=== PATIENT | male | born 1960 | race Two or more races ===

== ENCOUNTER 2019-01-31 20:42 | Inpatient (IN) | payer MEDICARE ==
[~2019-01-31] VITALS: Ht 175.3 cm; Wt 109.5 kg
[2019-01-31] MEDS ORDERED: MORPHINE SULFATE 4 MG/ML VIAL. ONE (20:54)
[2019-01-31] MEDS ORDERED: ONDANSETRON PF 4 MG/2 ML VIAL. ONE (20:54)
[2019-01-31] MEDS ORDERED: ONDANSETRON PF 4 MG/2 ML VIAL. IM ONE ×2 (21:00→22:45)
[2019-01-31] MEDS ORDERED: MORPHINE SULFATE 4 MG/ML VIAL. IV ONE ×2 (21:00→22:45)
[2019-01-31] MEDS ORDERED: ONDANSETRON PF 4 MG/2 ML VIAL. IV ONE ×2 (21:15→22:45)
--- NOTE | 2019-01-31 21:53 | PHYS DOC ---
Past Medical History Past Medical History: Diabetes-Type II (CHARITO HICKS APRN) Additional Past Surgical Histo: RIGHT KNEE SURGERY (CHARITO HICKS APRN) Alcohol Use: Occasionally Drug Use: None (CHARITO HICKS APRN) Attending Signature I have participated in the care of this patient and I have reviewed and agree with all pertinent clinical information above including history, exam, and recommendations. (KAMALA LI MD) Adult General Chief Complaint Chief Complaint: LOWEREXTREMITY INJURY HPI HPI Patient is a 58 year old male who presents with [right knee and thigh pain. Patient reports he had fallen while at home approximately 2 hours ago, twisting his leg, having severe pain. Reports he has not been able to walk on it without severe pain. 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 Patient denies any dizziness, shortness of breath, weakness, denies any paresthesia down leg.] (CHARITO HICKS APRN) Review of Systems Review of Systems Constitutional: Denies fever or chills [] Respiratory: Denies cough or shortness of breath [] Cardiovascular: No additional information not addressed in HPI [] GI: Denies abdominal pain, nausea, vomiting, bloody stools or diarrhea [] : Denies dysuria or hematuria [] Musculoskeletal: Denies back pain or joint pain complains of pain to right distal femur, knee [] Integument: Denies rash or skin lesions [] Neurologic: Denies headache, focal weakness or sensory changes [] Endocrine: Denies polyuria or polydipsia [] All other systems were reviewed and found to be within normal limits, except as documented in this note. (CHARITO HICKS APRN) Current Medications Current Medications Current Medications Medications (Trade) Dose Ordered Sig/Rodolfo Start Time Stop Time Status Last Admin Dose Admin Morphine Sulfate (Morphine Sulfate) 4 mg 1X ONCE 01/31/19 22:45 01/31/19 22:48 DC 01/31/19 22:39 4 MG Ondansetron HCl (Zofran) 4 mg 1X ONCE 01/31/19 22:45 01/31/19 22:48 DC 01/31/19 22:52 4 MG (KAMALA LI MD) Allergies Allergies Allergies Coded Allergies Type Severity Reaction Last Updated Verified No Known Drug Allergies 01/31/19 No (KAMALA LI MD) Physical Exam Physical Exam Constitutional: Well developed, well nourished, no acute distress, but appears uncomfortable, non-toxic appearance. [] [] Neck: Normal range of motion, no tenderness, supple, no stridor. [] Cardiovascular:Heart rate regular rhythm, no murmur [] Lungs & Thorax: Bilateral breath sounds clear to auscultation [] Abdomen: Bowel sounds normal, soft, no tenderness, no masses, no pulsatile masses. [] Skin: Warm, dry, no erythema, no rash. No lesions noted [] Back: No tenderness, no CVA tenderness. [] Extremities: No tenderness, no cyanosis, no clubbing, ROM intact, no edema. Vital swelling, deformity noted to distal end of right femur, patient keeping leg bent at 60 angle. Pulses intact distally, discomfort when trying to move noted.[] Neurologic: Alert and oriented X 3, normal motor function, normal sensory function, no focal deficits noted. [] Psychologic: Affect normal, judgement normal, mood normal. [] (CHARITO HICKS APRN) Current Patient Data Vital Signs Vital Signs Date Time Temp Pulse Resp B/P (MAP) Pulse Ox O2 Delivery O2 Flow Rate FiO2 01/31/19 23:15 70 25 134/75 (94) 94 Room Air 01/31/19 20:50 98.7 98.7 (KAMALA LI MD) EKG EKG [] (CHARITO HICKS APRN) Radiology/Procedures Radiology/Procedures Noted fracture to distal femur, displaced[] (CHARITO HICKS APRN) Course & Med Decision Making Course & Med Decision Making Pertinent Labs and Imaging studies reviewed. (See chart for details) [Discussed with Dr. Martines, we'll admit patient to hospitalist for surgical repair tomorrow. Also requests CT of lower leg to rule out any tibial plateau fracture. We'll admit patient for pain control, given patient nothing by mouth admitted for surgery] (CHARITO HICKS APRN) Dragon Disclaimer Dragon Disclaimer This electronic medical record was generated, in whole or in part, using a voice recognition dictation system. (CHARITO HICKS APRN) Departure Departure Impression: Primary Impression: Femur fracture, right Disposition: 09 ADMITTED INPATIENT Admitting Physician: YUNG (CHARITO HICKS APRN) Condition: STABLE Problem Qualifiers Primary Impression: Femur fracture, right Encounter type: initial encounter Femur location: distal epiphysis Fracture type: closed Fracture alignment: displaced Qualified Codes: S72.441A - Displaced fracture of lower epiphysis (separation) of right femur, initial encounter for closed fracture CHARITO HICKS APRN Jan 31, 2019 21:53 KAMALA LI MD Feb 01, 2019 02:41
[2019-01-31 23:35] LABS: BASO % 1 % (0-3); EOS % 0 % (0-3); HEMATOCRIT 41.5 % (39.0-53.0); HEMOGLOBIN 13.9 g/dL (13.0-17.5); LYMPH # 0.9 x10^3/uL (1.0-4.8); LYMPH % 10 % (24-48); MEAN CORPUSCULAR HEMOGLOBIN 28 pg (25-35); MEAN CORPUSCULAR HGB CONC 34 g/dL (31-37); MEAN CORPUSCULAR VOLUME 84 fL (79-100); MONO # 0.4 x10^3/uL (0.0-1.1); MONO % 5 % (0-9); NEUT # 8.1 x10^3/uL (1.8-7.7); NEUT % 85 % (31-73); PLATELET COUNT 175 x10^3/uL (140-400); RED BLOOD COUNT 4.92 x10^6/uL (4.30-5.70); RED CELL DISTRIBUTION WIDTH 13.6 % (11.5-14.5); WHITE BLOOD COUNT 9.6 x10^3/uL (4.0-11.0)
[2019-01-31 23:44] LABS: PROTHROMBIN TIME PATIENT 12.3 SEC (11.7-14.0)
[2019-01-31] MEDS ORDERED: fentaNYL PF VIAL 100 MCG/2 ML VIAL IV PRN (23:45)
[2019-01-31] MEDS ORDERED: ONDANSETRON PF 4 MG/2 ML VIAL. IV PRN (23:45)
[2019-01-31 23:47] LABS: GFR 76.2; POTASSIUM 4.2 mmol/L (3.5-5.1)
[2019-01-31 23:53] LABS: ALBUMIN 3.5 g/dL (3.4-5.0); ALBUMIN/GLOBULIN RATIO 0.9 (1.0-1.7); TOTAL BILIRUBIN 0.2 mg/dL (0.2-1.0); TOTAL PROTEIN 7.3 g/dL (6.4-8.2)
[2019-02-01] VITALS (11 sets, daily range): BP systolic 112–147; BP diastolic 59–83
--- NOTE | 2019-02-01 00:19 | RAD ---
Exam: CT right lower extremity without contrast INDICATION: Fracture TECHNIQUE: Sequential axial images through the right lower extremity obtained without IV contrast. Sagittal and coronal reformatted images were reconstructed from the axial data and reviewed. Comparisons: None FINDINGS: There is a obliquely oriented comminuted fracture through the distal right femoral diaphysis which is impacted and angulated anteriorly with moderate displacement. No other fractures are seen. No acute fracture of the tibial plateau. No suprapatellar hemarthrosis. There is osteoarthritic change at the knee joint with subchondral cystic change. IMPRESSION: 1. Obliquely oriented comminuted fractures of the distal right femoral diaphysis. 2. No fracture of the tibial plateau identified. Exposure: One or more of the following in the visualized dose reduction techniques were utilized for this examination: 1. Automated exposure control 2. Adjustment of the MA and/or KV according to patient size 3. Use of iterative of reconstructive technique Electronically signed by: Raoul Elizabeth MD (02/01/2019 12:16 AM) [facility]
--- NOTE | 2019-02-01 00:20 | NUR ---
The patient, GOLDY FISHER, 58 y/o, M admitted by ZELALEM MURILLO, was given written information regarding hospital policies, unit procedures and contact persons. RN received report from Edith CANO in the ED at [id number], patient was transported from the ED to room 410 via gurney at 0020 with and daughter at bedside. RN performed a head to toe assessment at that time, VSS and afebrile. Bed is in lowest locked position and call light is within reach. Valuables were checked and left in the room with the patient. RN will continue to monitor patient closely.
[2019-02-01] MEDS: MORPHINE SULFATE 4 MG/ML VIAL. IV PRN ×3 (00:38→21:52)
[2019-02-01] MEDS: IV NORMAL SALINE 1000ML BAG 1,000 ML IV SCH ×3 (00:40→20:14)
[2019-02-01] MEDS ORDERED: METF500T16 PO (02:37)
--- NOTE | 2019-02-01 03:22 | RAD ---
Exam: Right femur. INDICATION: Trauma TECHNIQUE: Frontal view of the hip was obtained Comparisons: None FINDINGS: The femur is incompletely visualized. Proximal portion of the right femur is well-maintained. Hip joint is in anatomic alignment. Soft tissues are unremarkable. Bone mineralization is normal. IMPRESSION: Femur incompletely visualized. No fracture in the proximal femur. Electronically signed by: Raoul Elizabeth MD (02/01/2019 3:19 AM) [facility]
--- NOTE | 2019-02-01 03:23 | RAD ---
Exam: Right knee 2 views INDICATION: Trauma TECHNIQUE: Frontal and lateral views of the right knee Comparisons: None FINDINGS: Obliquely oriented comminuted fracture through the distal femoral diaphysis. Strandy soft tissues are unremarkable. Joint spaces are well-maintained. IMPRESSION: Obliquely oriented comminuted fracture at the distal right femoral diaphysis. Electronically signed by: Raoul Elizabeth MD (02/01/2019 3:20 AM) [facility]
--- NOTE | 2019-02-01 03:27 | RAD ---
Exam: Chest one view INDICATION: Trauma TECHNIQUE: Frontal view of the chest Comparisons: None FINDINGS: The cardiomediastinal silhouette and pulmonary vessels are within normal limits. The lung and pleural spaces are clear. IMPRESSION: No acute cardiopulmonary process. Electronically signed by: Raoul Elziabeth MD (02/01/2019 3:24 AM) [facility]
[2019-02-01] MEDS ORDERED: fentaNYL PF VIAL 100 MCG/2 ML VIAL ONE (08:36)
[2019-02-01] MEDS ORDERED: SEVOFLURANE > 120 MINUTES. IH ONE (08:37)
[2019-02-01] MEDS ORDERED: ONDANSETRON PF 4 MG/2 ML VIAL. ONE (08:37)
[2019-02-01] MEDS ORDERED: PROPOFOL 20 ML IV ONE (08:37)
[2019-02-01] MEDS ORDERED: LIDOCAINE 2% PF 5 ML VIAL. ONE (08:37)
[2019-02-01] MEDS ORDERED: KETOROLAC 30 MG/ML VIAL. ONE (08:37)
[2019-02-01] MEDS ORDERED: DEXAMETHASONE SOD PHOS 4 MG/ML VIAL ONE (08:37)
[2019-02-01] MEDS: IV RINGERS,LACTATED 1000ML 1,000 ML IV SCH ×2 (08:44→12:14)
[2019-02-01] MEDS ORDERED: fentaNYL PF VIAL 100 MCG/2 ML VIAL IV PRN ×2 (08:45)
[2019-02-01] MEDS ORDERED: MORPHINE SULFATE 2 MG/ML VIAL. IV PRN (08:45)
[2019-02-01] MEDS ORDERED: LIDOCAINE 1% PF 2 ML VIAL. ID PRN (08:45)
[2019-02-01] MEDS ORDERED: ONDANSETRON PF 4 MG/2 ML VIAL. IV PRN (08:45)
[2019-02-01] MEDS ORDERED: HYDROmorphone 2 MG/ML VIAL IV PRN (08:45)
[2019-02-01] MEDS ORDERED: PROCHLORPERAZINE 10 MG/2 ML VIAL. IV PRN (08:45)
[2019-02-01] MEDS ORDERED: FLU VAX QS 2019-20 (36MOS+)/PF 0.5 ML SYRINGE. VAX IM ONE (09:00)
[2019-02-01] MEDS ORDERED: HYDROmorphone 2 MG/ML VIAL ONE (11:11)
--- NOTE | 2019-02-01 11:20 | CONS ---
DATE OF CONSULTATION: 02/01/2019 REQUESTING PHYSICIAN: [facility]. REASON FOR CONSULTATION: Right distal femur fracture. HISTORY: The patient is a 58-year-old male who was interviewed today with the assistance of a family member aerial photograph interpreter who reports a fall last night where he twisted his right leg, had the onset of severe pain and deformity, is not able to bear weight. He does have a remote history of previous surgery. You can do an x-ray. It looks a little funny, but he has a history of TB in leg. He denies any loss of consciousness or other injury aside from the right leg deformity. PAST MEDICAL HISTORY: Significant for type 2 diabetes well controlled and a history of right knee problems with previous infection. PAST SURGICAL HISTORY: Right knee surgery for infection in the past about 3 years ago and subsequent antibiotic treatment for tuberculosis. SOCIAL HISTORY: He is , lives with family. Denies any tobacco or drug use. Occasional social alcohol use. ALLERGIES: He has no known drug allergies. MEDICATIONS: List is reviewed. REVIEW OF SYSTEMS: Denies any chest pain, shortness of breath, head injury, visual changes, focal weakness, numbness, tingling, radiating pain in the upper or lower extremities. He does indicate atraumatic onset of right knee pain in the past that precipitated a workup for infection, subsequent surgery and treatment with antibiotics for an infection, tuberculosis in origin and he has had some ongoing knee pain, especially with activity in the interim. PHYSICAL EXAMINATION: GENERAL: A pleasant, cooperative 58-year-old male, alert and oriented, only mild distress secondary to the distal femur fracture held still. HEENT: Atraumatic, normocephalic. HEART: Regular rate and rhythm. LUNGS: Clear to auscultation bilaterally. ABDOMEN: Benign. EXTREMITIES: Examination of the upper extremities, he has good shoulder, elbow and wrist motion and stability, no tenderness on palpation. Grasp strength is full. On examination of lower extremities, no tenderness on palpation over bilateral hips or ankles. He can plantar and dorsiflex without issue. Distal pulses, sensation are intact. He has an obvious deformity just above the knee on the right side. Skin is overlying intact. Normal examination of the contralateral knee. IMAGING: X-rays show a displaced oblique distal femur fracture with some mild comminution. He also has some degenerative changes present at the knee joint apparently from the previous infection. I elicited this further with a CT scan evaluation, which shows no tibia fracture, but only degenerative change. IMPRESSION: 1. Right distal femur fracture. 2. History of infection of right knee remotely, tuberculosis in origin reportedly. TREATMENT PLAN: I went over a detailed discussion with the patient and his through a family member aerial photograph interpreter, my recommended fixation plans surgically with locking screws and plate from lateral. I did talk about the mildly increased risk of infection because of the problems he had in the past and he was told back in [place] where this initial treatment occurred in where he was followed along that he may need a total knee replacement at some point due to the worsening pain he was having even prior to the fall and ongoing arthritis. I told him likewise that there may be at some point hardware removal if he would need total knee later. Alternative methods of fixation, I do not think are as good, intramedullary nail would really not be very ____ fixation for him and likewise external fixation would have some infection risk as well, although the hardware could be readily removed, infection can creep in along the pin sites for example and likewise would not provide a ____ fixation and his healing. I did emphasize to him that if he did have infection complications later, it is possibly necessitate hardware removal or could resultant nonhealing likewise even under the best of circumstances, I would have him nonweightbearing until healing as well along probably expected nonweightbearing for a couple of months, but he could move his knee and get up and around with his restrictions otherwise. We talked about the poor results of traction or nonoperative treatment with this particular orientation of fracture. He wishes to proceed with surgical evaluation and treatment, having had all his questions answered through the aerial photograph interpreter and we will proceed with surgery this morning. CHUCK DELACRUZ MD DR: ANANDA/atif JOB#: [id number] / [id number]
--- NOTE | 2019-02-01 13:25 | PDOC4 ---
Operative Note Operative Note Date of surgery: 02/01/2019 Preoperative diagnosis: Displaced oblique right distal femur fracture Postoperative diagnosis: Same Operative procedure: Operative reduction locking plate and screw internal fixation right distal femur fracture Surgeon: Bobbi Anesthesia: Gen. Estimated blood loss: 200 mL Compilations: None Operative indications: We see my dictated orthopedic consultation for detailed operative indications and note that he has a displaced oblique distal femur fracture with a history of previous operatively treated tuberculosis infection of his right knee and has some arthritis but no intra-articular involvement of the fracture area and I had gone over with him the generally unacceptable nonoperative treatment options of traction due to immobility related concerns and operative options containing some risk of infection particularly given his previous history the possibility of eventual hardware removal due to perhaps a contemplated total knee in the future possibility of nonhealing nerve or blood vessel damage medical or other anesthetic competitions among others all his questions were answered he wishes to proceed with surgical evaluation and treatment. Operative text: Patient was identified procedure verified patient placed in the supine position on the operating table. After adequate amounts of general anesthesia were administered the right lower extremity was prepped and draped in standard sterile fashion after timeout was performed patient procedure identified and verified and incision was made and a lateral approach was made to the distal femur dividing the iliotibial band splitting the vastus lateralis and subperiosteal dissection carried out traction was carried out on the femur to obtain near anatomic reduction and a 5 hole Luli distal femur locking plate was placed under fluoroscopic guidance and anchored with a screw distally as well as a shaft screw and the remainder of the distal screws and then shaft screws were placed all with locking caps and reduction checked under multiple fluoroscopic views for hardware length placement and again essentially anatomic fracture reduction. Thorough irrigation carried out normal saline solution fascia was closed with #1 PDS strata fix suture subcutaneous closure with buried Vicryl suture skin closure with alessia sterile dressings were applied followed by an Gaston wrap patient was returned recovery room stable condition having tolerated procedure well CHUCK DELACRUZ MD Feb 01, 2019 13:25
--- NOTE | 2019-02-01 17:13 | NUR ---
Katharine Rawls was talked to personally by Dr Augustin regarding new I.D. consult.
[2019-02-02 03:38] VITALS: BP 115/64
[2019-02-02] MEDS: MORPHINE SULFATE 4 MG/ML VIAL. IV PRN ×2 (05:26→13:26)
[2019-02-02 07:00] VITALS: BP 118/61
[2019-02-02 12:00] VITALS: BP 143/67
[2019-02-02 15:00] VITALS: BP 123/69
--- NOTE | 2019-02-02 16:00 | PDOC ---
Infectious Disease Note Vital Sign Vital Signs Vital Signs Date Time Temp Pulse Resp B/P (MAP) Pulse Ox O2 Delivery O2 Flow Rate FiO2 02/02/19 15:00 98.7 71 18 123/69 (87) 94 Room Air 98.7 02/01/19 19:30 10.0 Labs Lab Laboratory Tests Test 02/01/19 16:38 02/01/19 20:56 02/02/19 07:19 02/02/19 11:44 Glucose (Fingerstick) 211 mg/dL (70-99) 170 mg/dL (70-99) 133 mg/dL (70-99) 146 mg/dL (70-99) Objective Assessment Right distal femur fracture from a fall. s/p repair with hardware, 02/01 Remote h/o TB in right knee. He was followed by the health depart and completed a yr of treatment - per family. Pre-diabetes Obesity Plan Plan of Care No need for abx Pain control per primary PT as directed per ortho D/w family at bedside Thank you D/w family - TB 3 to 4 years ago in [place] in right knee and had DOT by HD to [facility] Here visiting from [place] and slipped on wet grass Prior to fall [facility]. Has chronic knee pain since infection but was not experiencing anything out of the normal for him prior to fall No F/C/S/N/V/D/SOA/night sweats/weight loss/syncope/dizziness ROS o/w neg Attending Co-Sign Attending Co-Sign The patient was seen and interviewed as well as examined at the bedside. The chart was reviewed. The case was discussed. Agree with the plan of care. COLLINS HOWELL APRN Feb 02, 2019 16:00 HENNA MCCOY MD Feb 02, 2019 16:13
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
[2019-02-02] MEDS: HYDROcodone/APAP 7.5/325MG 1 TAB TABLET PO PRN (18:02)
[2019-02-02 19:20] VITALS: BP 126/70
[2019-02-02 23:21] VITALS: BP 132/58
[2019-02-03 03:12] VITALS: BP 128/62
[2019-02-03 07:00] VITALS: BP 133/78
[2019-02-03] MEDS: HYDROcodone/APAP 7.5/325MG 1 TAB TABLET PO PRN (08:34)
--- NOTE | 2019-02-03 08:39 | PDOC ---
PROGRESS NOTES Subjective Subjective Problems overnight:Derrick was evaluated and interviewed with the assistance of a Amharic-speaking nurse (Gladis) as a digital court reporter area and he appears to be doing well he was getting up and around with assistance nonweightbearing as directed pain is well-controlled Objective Vital Signs Vital Signs Date Time Temp Pulse Resp B/P (MAP) Pulse Ox O2 Delivery O2 Flow Rate FiO2 02/03/19 07:00 99.0 74 18 133/78 (96) 94 Room Air 99.0 02/01/19 19:30 10.0 Physical Exam His dressing is clean dry intact he has good knee stability and early range of motion distal neurovascular status is intact Labs Laboratory Tests Test 02/01/19 09:29 02/01/19 12:22 02/01/19 15:09 02/01/19 16:38 Glucose (Fingerstick) 129 mg/dL (70-99) 169 mg/dL (70-99) 219 mg/dL (70-99) 211 mg/dL (70-99) Test 02/01/19 20:56 02/02/19 07:19 02/02/19 11:44 02/02/19 16:36 Glucose (Fingerstick) 170 mg/dL (70-99) 133 mg/dL (70-99) 146 mg/dL (70-99) 132 mg/dL (70-99) Test 02/02/19 20:43 02/03/19 07:29 Glucose (Fingerstick) 156 mg/dL (70-99) 149 mg/dL (70-99) Laboratory Tests Test 02/02/19 11:44 02/02/19 16:36 02/02/19 20:43 02/03/19 07:29 Glucose (Fingerstick) 146 mg/dL (70-99) 132 mg/dL (70-99) 156 mg/dL (70-99) 149 mg/dL (70-99) Imaging Intraoperative imaging showed excellent reduction and appropriate hardware placement of a distal locking plate fixating his distal femur fracture on the right Assessment Assessment POD# 2 ORIF right distal femur fracture Plan Plan of Care He can continue to mobilize with physical therapy nonweightbearing on the right but can move his knee as tolerated and do leg lifts and other isometrics heel pumps and slides etc. Appreciate infectious disease consultation, noted that there is no other treatment necessary other than perioperative antibiotics Pending satisfactory transfers and ambulation safety he is stable from an orthopedic standpoint and I would see him back in about 10-14 days for wound check and plan staple removal CHUCK DELACRUZ MD Feb 03, 2019 08:39
[2019-02-03] MEDS ORDERED: FLU VAX QS 2019-20 (36MOS+)/PF 0.5 ML SYRINGE. VAX IM ONE (08:45)
[2019-02-03 11:00] VITALS: BP 146/80
[2019-02-03] MEDS ORDERED: HYDR-2761 PO (11:40)
[2019-02-03] MEDS ORDERED: POLYETHYLENE GLYCOL 3350 17 GM PACKET. PO SCH (12:00)
[2019-02-03] MEDS ORDERED: DOCUSATE SODIUM 100 MG CAPSULE. PO SCH (12:00)
--- NOTE | 2019-02-03 12:10 | SNU/HH DC ---
DISCHARGE ORDERS DISCHARGE INFORMATION: CONDITION ON DISCHARGE: Stable CODE STATUS: Code Status: Full SNF: SNF STAY <30 DAYS: Yes HOSPICE: HOSPICE: No HOSPICE EVAL & TREAT: No LTAC: ADMIT TO LTAC: No POST DISCHARGE ORDERS: WEIGHT BEARING STATUS: Touch down weight bearing DIET AFTER DISCHARGE: Cardiac TREATMENT/EQUIPMENT ORDERS: Physical Therapy For: Evalulation/Treatment Occupational Therapy For: Evaluation/Treatment DISCHARGE MEDICATIONS: Home Meds Reported Medications Hydrocodone Bit/Acetaminophen (HYDROCODONE-APAP 5-325 ) 1 Tab Tablet, 1 TAB PO PRN Q6HRS PRN for PAIN, #20 TAB 0 Refills 02/03/19 Metformin Hcl (METFORMIN HCL) 500 Mg Tablet, 500 MG PO DAILY for ANTI-DIABETIC, TAB 0 Refills 02/01/19 DELORES SANDOVAL III DO Feb 03, 2019 12:10
--- NOTE | 2019-02-03 12:11 | SNU/HH DC ---
DISCHARGE WITH HOME HEALTH DISCHARGE INFORMATION: Condition on Discharge: Stable CODE STATUS: Code Status: Full HOME HEALTH: Face to Face: I certify this patient is under my care and that I, or a nurse practitioner or physician's research lab assistant working with me, had a face to face encounter that meets the physician face to face encounter requirements with this patient on []. 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 POST DISCHARGE ORDERS: Weight Bearing Status after Di: Touch down weight bearing DIET AFTER DISCHARGE: Cardiac CERTIFICATION STATEMENT: Certification Statement: Certification Statement: Based on the above finding, I certify that this patient is confined to the home and needs intermittent care home care, physical therapy and/or speech therapy, or continues to need occupational therapy.~ This patient is under my care, and I have initiated the establishment of the plan of care.~ This patient will be followed by myself or a community physician who will periodically review the plan of care. Home Meds Reported Medications Hydrocodone Bit/Acetaminophen (HYDROCODONE-APAP 5-325 ) 1 Tab Tablet, 1 TAB PO PRN Q6HRS PRN for PAIN, #20 TAB 0 Refills 02/03/19 Metformin Hcl (METFORMIN HCL) 500 Mg Tablet, 500 MG PO DAILY for ANTI-DIABETIC, TAB 0 Refills 02/01/19 DELORES SANDOVAL III DO Feb 03, 2019 12:10
--- NOTE | 2019-02-03 13:53 | NUR ---
Discharge Note: MARAH FISHER Discharge instructions and discharge home medications reviewed with Patient and a copy given. All questions have been answered and understanding verbalized.
--- NOTE | 2019-02-04 09:37 | HP ---
ADMIT DATE: CHIEF COMPLAINT: Fall with leg pain. HISTORY OF PRESENT ILLNESS: The patient is a pleasant middle-aged male who was basically healthy, but he suffered leg pain after falling. We did some imaging, he has a femur fracture. He is being admitted for consultation with Orthopedics and going to Surgery. PAST MEDICAL HISTORY: Benign. ALLERGIES: None. FAMILY HISTORY: Diabetes. SOCIAL HISTORY: Does not drink, smoke or take drugs. MEDICATIONS: Reviewed, please refer to the MRAD. REVIEW OF SYSTEMS: GENERAL: No history of weight change, weakness or fevers. SKIN: No bruising, hair changes or rashes. EYES: No blurred, double or loss of vision. NOSE AND THROAT: No history of nosebleeds, hoarseness or sore throat. HEART: No history of palpitations, chest pain or shortness of breath on exertion. LUNGS: Denies cough, hemoptysis, wheezing or shortness of breath. GASTROINTESTINAL: Denies changes in appetite, nausea, vomiting, diarrhea or constipation. GENITOURINARY: No history of frequency, urgency, hesitancy or nocturia. NEUROLOGIC: Denies history of numbness, tingling, tremor or weakness. PSYCHIATRIC: No history of panic, anxiety or depression. ENDOCRINE: No history of heat or cold intolerance, polyuria or polydipsia. EXTREMITIES: He complains of right leg pain. PHYSICAL EXAMINATION: VITALS: Within normal limits and are stable. GENERAL: No apparent distress. Alert and oriented. HEENT: Normal cephalic atraumatic, external auditory canals are patent. EYES: Extraocular muscles are intact, pupils are equally round and reactive to light and accommodation. MUSKULOSKELETAL: Well developed, well nourished, good range of motion. ENDOCRINE: No thyromegaly was palpated. LYMPHATICS: No cervical chain or axillary nodes were noted. HEMATOPOIETIC: No bruising. NECK: Supple, no JVD, no thyromegaly was noted. LUNGS: Clear to auscultation in all lung connors without rhonchi or wheezing. HEART: RRR, S1, S2 present. Peripheral pulses intact, no obvious murmurs were noted. ABDOMEN: Soft, nontender. Positive bowel sounds no organomegaly, normal bowel sounds. EXTREMITIES: Without any cyanosis, clubbing, or edema. Pedal pulses intact, Homans sign is negative. NEUROLOGIC: Normal speech, normal tone. A & O x 3, moves all extremities, no obvious focal deficits. PSYCHIATRIC: Normal affect, normal mood. Stable. SKIN: No ulcerations or rashes, good skin turgor, no jaundice. VASCULAR: Good capillary refill, neurovascular bundle appears to be intact. ASSESSMENT AND PLAN: Fall with right femur fracture. Plan is admit, p.r.n. pain meds, IV fluids. Consult Ortho. DVT prophylaxis. Full code. DELORES SANDOVAL DO DR: KAYCEE/atif JOB#: [id number] / [id number]
== END 2019-02-03 14:12 | disposition home or self-care (01) | DRG 482 ==
LOC: ER 20:42 → 4 NORTH 23:18
PROVIDERS: ADMIT Internal Medicine; ATTEND Internal Medicine
PROC: 0QSB04Z Reposition Right Lower Femur with Internal Fixation Device, Open Approach (ICD-10-PCS; principal; 2019-02-01 10:00)
DX: S72.441A Displaced fracture of lower epiphysis (separation) of right femur, initial encounter for closed fracture (principal); E11.9 Type 2 diabetes mellitus without complications; E66.9 Obesity, unspecified; G89.29 Other chronic pain; W01.0XXA Fall on same level from slipping, tripping and stumbling without subsequent striking against object, initial encounter; M19.90 Unspecified osteoarthritis, unspecified site; Z83.3 Family history of diabetes mellitus; Z86.11 Personal history of tuberculosis; Z68.35 Body mass index [BMI] 35.0-35.9, adult; Y93.89 Activity, other specified; Y92.89 Other specified places as the place of occurrence of the external cause; Y99.8 Other external cause status
CPT/HCPCS: 36415; 71045; 73552; 73560; 73700; 76000; 80053; 82962; 85025; 85610; 90471; 90686; A7015; C1713; J0690; J0696; J1100; J1170; J1885; J2001; J2270; J2405; J2704; J3010; J7030; J7120; 97116; 99285-25; G0378